=== PATIENT | male | born 1960 | race Caucasian/White ===

== ENCOUNTER 2018-01-07 03:09 | Observation (INO) | payer BC ==
[2018-01-07 04:38] LABS: CKMB 2.3 ng/mL (0-6.6); Troponin I Less than 0.010 ng/mL (< 0.028)
[2018-01-07 05:38] VITALS: BMI 29.6
[2018-01-07 07:41] LABS: Troponin I Less than 0.010 ng/mL (< 0.028)
[2018-01-07 11:37] VITALS: BP 108/64; TEMP 97.3
[2018-01-07 12:23] LABS: Troponin I Less than 0.010 ng/mL (< 0.028)
--- NOTE | 2018-01-07 13:49 | SS ---
DATE OF ADMISSION: 01/07/2018 DATE OF DISCHARGE: 01/07/2018 DISCHARGE DIAGNOSES: 1. Chest pain. 2. Hypertension. 3. Anxiety. HISTORY OF PRESENT ILLNESS: The patient is a very pleasant 57-year-old male, who presented to the [facility] with complaints of chest pain. There was a chief complaint also. Patient stated that at [facility] 11:00 p.m., after arguing with his , the patient was settling down to go to bed and started cadet ving significant chest tightness. Patient initially thought it was most likely an anxiety attack or panic attack since he normally gets those very often and takes Xanax. The patient then stated that torsten pereira still continued to have significant chest tightness and at this time he came into the ER for furthe r evaluation. In the ER, the patient's troponins were completely negative x3. Also, his EKG was com pletely normal. The patient was admitted overnight for further evaluation. PAST MEDICAL HISTORY: He has a history of hypertension and anxiety. PAST SURGICAL HISTORY: He has a left rotator cuff repair and appendectomy. FAMILY HISTORY: He denies any family history of any heart disease. His parents are still alive and doing well. SOCIAL HISTORY: He smokes a pack a day, also denies any alcohol or drug use. He is a FULL CODE per patient. REVIEW OF SYSTEMS: All negative except for ones mentioned above in the HPI. PHYSICAL EXAMINATION: VITAL SIGNS: Temperature of 97.3, 67, 20 respirations, 95% on room air, 108/64. GENERAL: He is awake, alert, oriented x3, does not appear in distress. CARDIOVASCULAR: S1 and S2 present. No murmurs, rubs or gallops. ABDOMEN: Soft, nontender. Bowel sounds are present. EXTREMITIES: No edema. Pedal pulses present x2. NEUROLOGIC: No focal neurological deficits noted. SKIN: Intact. No cuts, lesions, or bruises noted. LABORATORY DATA: As of the following the patient, troponins x3 were negative. WBC mildly elevated a t 14.3, hemoglobin of 15.6, hematocrit 44.2, platelets of 177. His chemistry indicated a sodium of 1 42, potassium of 4.1, BUN of 16, creatinine of 1.07. LFTs were completely normal. D-dimer was 2.096 . ASSESSMENT AND PLAN: The patient is a very pleasant 57-year-old male, who presented to the hospital for chest pain. 1. Chest pain. The patient underwent an exercise stress test, which was normal. The patient will b e discharged home. Follow up with primary care doctor. Also, his EKG was completely normal. 2. Anxiety. We will continue his home meds. 3. Hypertension. We will continue his home meds.
== END 2018-01-07 13:36 | disposition home or self-care (01) ==
LOC: ERS 03:09 → 2SW 04:15
PROVIDERS: ADMIT Hospitalist; ATTEND Hospitalist
DX: R07.9 Chest pain, unspecified (principal); I10 Essential (primary) hypertension; F41.9 Anxiety disorder, unspecified; F17.200 Nicotine dependence, unspecified, uncomplicated; Z79.899 Other long term (current) drug therapy
CPT/HCPCS: 36415; 82553; 90471; 90732; 93005; 93017; G0009; G0378

== ENCOUNTER 2021-01-06 13:23 | Outpatient (CLI) | payer BC ==
[~2021-01-06 13:23] MED LIST: Iopamidol 370 76% 100 ML VIAL ONE
== END 2021-01-06 13:24 | disposition home or self-care (01) ==
LOC: BICCT 13:23
PROVIDERS: ATTEND Registered Nurse
DX: R10.9 Unspecified abdominal pain (principal); R31.0 Gross hematuria; N20.0 Calculus of kidney; N28.1 Cyst of kidney, acquired; Z87.442 Personal history of urinary calculi
CPT/HCPCS: 74170; 82565; Q9967